=== PATIENT | female | born 1995 | race Caucasian/White ===

== ENCOUNTER 2018-05-19 19:31 | Emergency (ER) | payer OTHER ==
[~2018-05-19] VITALS: Ht 177.8 cm; Wt 113.4 kg
[2018-05-19 20:18] VITALS: Ht 177.8 cm; Wt 113.4 kg
[2018-05-19] MEDS ORDERED: CLEOCIN HCL300 MG PO (21:39)
[2018-05-19] MEDS ORDERED: VOLTAREN75 MG PO (21:39)
[2018-05-19 22:05] VITALS: BP 153/91
== END 2018-05-19 22:05 | disposition home or self-care (01) ==
LOC: D.ER 19:31
DX: L03.314 Cellulitis of groin (principal)

== ENCOUNTER 2018-06-25 14:30 | Emergency (ER) | payer OTHER ==
[~2018-06-25] VITALS: Ht 177.8 cm; Wt 113.6 kg
[~2018-06-25 14:30] MED LIST: CLEOCIN HCL300 MG PO; VOLTAREN75 MG PO
[2018-06-25 14:42] VITALS: Ht 177.8 cm; Wt 113.6 kg
[2018-06-25 15:14] LABS: APPEARANCE HAZY (CLEAR); BILIRUBIN NEGATIVE (NEGATIVE); COLOR YELLOW (YELLOW); GLUCOSE NEGATIVE (NEGATIVE); KETONE NEGATIVE (NEGATIVE); NITRITE NEGATIVE (NEGATIVE); PROTEIN TRACE mg/dL (NEGATIVE); SPECIFIC GRAVITY 1.025 (1.005-1.020); UROBILINOGEN NORMAL (NORMAL)
[2018-06-25 15:16] LABS: AMORPHOUS SEDIMENT >1+ /lpf (NONE SEEN); BACTERIA MODERATE /hpf (NONE SEEN); EPITHELIAL CELLS OCC /hpf (0-5); RED CELLS - URINE OCC /hpf (0-5)
[2018-06-25] MEDS ORDERED: PHENAZOPYRIDIN200 MG PO (16:24)
[2018-06-25] MEDS ORDERED: MACROBID100 MG PO (16:24)
[2018-06-25 16:39] VITALS: BP 141/76
== END 2018-06-25 16:40 | disposition home or self-care (01) ==
LOC: D.ER 14:30
PROVIDERS: Family Medicine
DX: N39.0 Urinary tract infection, site not specified (principal)

== ENCOUNTER 2018-09-03 14:00 | Emergency (ER) | payer SELFPAY ==
[~2018-09-03] VITALS: Ht 177.8 cm; Wt 113.6 kg
[~2018-09-03 14:00] MED LIST changes: +MACROBID100 MG PO; +PHENAZOPYRIDIN200 MG PO
[2018-09-03 14:34] VITALS: Ht 177.8 cm; Wt 113.6 kg
[2018-09-03] MEDS ORDERED: NAPROSYN500 MG PO (15:31)
[2018-09-03 15:56] VITALS: BP 112/64
== END 2018-09-03 15:42 | disposition home or self-care (01) ==
LOC: D.ER 14:00
DX: S93.402A Sprain of unspecified ligament of left ankle, initial encounter (principal); W01.0XXA Fall on same level from slipping, tripping and stumbling without subsequent striking against object, initial encounter; M25.562 Pain in left knee; F17.210 Nicotine dependence, cigarettes, uncomplicated

== ENCOUNTER 2018-10-18 15:33 | Emergency (ER) | payer SELFPAY ==
[~2018-10-18] VITALS: Ht 177.8 cm; Wt 113.6 kg
[~2018-10-18 15:33] MED LIST changes: +NAPROSYN500 MG PO
[2018-10-18 15:52] VITALS: Ht 177.8 cm; Wt 113.6 kg
[2018-10-18 17:09] LABS: APPEARANCE SL CLDY (CLEAR); BILIRUBIN NEGATIVE (NEGATIVE); COLOR YELLOW (YELLOW); GLUCOSE NEGATIVE (NEGATIVE); KETONE NEGATIVE (NEGATIVE); NITRITE NEGATIVE (NEGATIVE); PROTEIN TRACE mg/dL (NEGATIVE); UROBILINOGEN NORMAL (NORMAL)
[2018-10-18 17:11] LABS: RED CELLS - URINE 0-5 /hpf (0-5); WHITE CELLS - URINE >50 /hpf (0-5)
[2018-10-18 17:13] LABS: BACTERIA FEW /hpf (NONE SEEN); EPITHELIAL CELLS 0-5 /hpf (0-5); HCG URINE NEGATIVE (NEGATIVE)
[2018-10-18] MEDS ORDERED: MACROBID100 MG PO (17:31)
[2018-10-18] MEDS ORDERED: PHENAZOPYRIDIN100 MG PO (17:31)
[2018-10-18 18:05] VITALS: BP 123/75
== END 2018-10-18 17:57 | disposition home or self-care (01) ==
LOC: D.ER 15:33
PROVIDERS: Family Medicine
DX: R30.9 Painful micturition, unspecified (principal)

== ENCOUNTER 2018-11-14 19:06 | Emergency (ER) | payer BC ==
[~2018-11-14] VITALS: Ht 177.8 cm; Wt 113.6 kg
[~2018-11-14 19:06] MED LIST changes: +PHENAZOPYRIDIN100 MG PO
[2018-11-14 19:10] VITALS: Ht 177.8 cm; Wt 113.6 kg
[2018-11-14] MEDS ORDERED: PREDNISONE20 MG PO (20:22)
[2018-11-14 20:56] VITALS: BP 103/58
== END 2018-11-14 20:56 | disposition home or self-care (01) ==
LOC: D.ER 19:06
DX: L50.9 Urticaria, unspecified (principal)

== ENCOUNTER 2018-11-16 09:24 | Emergency (ER) | payer BC ==
[~2018-11-16] VITALS: Ht 177.8 cm; Wt 113.6 kg
[~2018-11-16 09:24] MED LIST changes: +PREDNISONE20 MG PO
[2018-11-16 09:28] VITALS: Ht 177.8 cm; Wt 113.6 kg
[2018-11-16 12:31] VITALS: BP 132/87
[2018-11-16] MEDS ORDERED: ZYRTEC10 MG PO (12:31)
[2018-11-16] MEDS ORDERED: PEPCID AC20 MG PO (12:31)
== END 2018-11-16 12:38 | disposition home or self-care (01) ==
LOC: D.ER 09:24
DX: T78.40XA Allergy, unspecified, initial encounter (principal); X58.XXXA Exposure to other specified factors, initial encounter

== ENCOUNTER 2019-03-29 13:01 | Emergency (ER) | payer BC ==
[~2019-03-29] VITALS: Ht 177.8 cm; Wt 113.6 kg
[~2019-03-29 13:01] MED LIST changes: +PEPCID AC20 MG PO; +ZYRTEC10 MG PO
[2019-03-29 13:28] VITALS: BP 120/68; Ht 177.8 cm; Wt 113.6 kg
== END 2019-03-29 14:46 | disposition left against medical advice (07) ==
LOC: D.ER 13:01
DX: O26.891 Other specified pregnancy related conditions, first trimester (principal); Z3A.08 8 weeks gestation of pregnancy; R51 Headache

== ENCOUNTER 2019-07-27 00:02 | Outpatient (CLI) | payer OTHER ==
[2019-04-12 13:34] VITALS: BMI 36.9
[2019-07-27 00:48] LABS: BILIRUBIN NEGATIVE (NEGATIVE); GLUCOSE NEGATIVE (NEGATIVE); KETONE NEGATIVE (NEGATIVE); NITRITE NEGATIVE (NEGATIVE); SPECIFIC GRAVITY 1.005 (1.005-1.020); UROBILINOGEN NORMAL (NORMAL)
[2019-07-27 00:51] LABS: UDS - AMPHET NEGATIVE QUAL (NEGATIVE); UDS - BARB NEGATIVE QUAL (NEGATIVE); UDS - BENZO NEGATIVE QUAL (NEGATIVE); UDS - COCAINE NEGATIVE QUAL (NEGATIVE); UDS - OPIATE NEGATIVE QUAL (NEGATIVE); UDS - PCP NEGATIVE QUAL (NEGATIVE); UDS - THC NEGATIVE QUAL (NEGATIVE)
== END 2019-07-27 04:57 | disposition home or self-care (01) ==
LOC: D.LDO 00:02
PROVIDERS: ATTEND Obstetrics & Gynecology
DX: O26.892 Other specified pregnancy related conditions, second trimester (principal); Z3A.22 22 weeks gestation of pregnancy; N89.8 Other specified noninflammatory disorders of vagina

== ENCOUNTER 2019-08-06 10:09 | Outpatient (CLI) | payer OTHER ==
[2019-04-12 13:34] VITALS: BMI 36.9
== END 2019-08-06 12:30 | disposition home or self-care (01) ==
LOC: D.LDO 10:09
PROVIDERS: ATTEND Obstetrics & Gynecology
DX: O26.899 Other specified pregnancy related conditions, unspecified trimester (principal); Z3A.00 Weeks of gestation of pregnancy not specified

== ENCOUNTER 2019-08-12 17:20 | Outpatient (CLI) | payer OTHER ==
[2019-04-12 13:34] VITALS: BMI 36.9
== END 2019-08-12 18:00 | disposition home or self-care (01) ==
LOC: D.LDO 17:20
PROVIDERS: ATTEND Obstetrics & Gynecology
DX: O26.899 Other specified pregnancy related conditions, unspecified trimester (principal); Z3A.00 Weeks of gestation of pregnancy not specified

== ENCOUNTER → 2019-08-13 17:30 | Outpatient (CLI) | payer OTHER ==
[2019-04-12 13:34] VITALS: BMI 36.9
== END | disposition home or self-care (01) ==
LOC: D.LDO 17:30
PROVIDERS: ATTEND Obstetrics & Gynecology
DX: O26.899 Other specified pregnancy related conditions, unspecified trimester (principal); Z3A.00 Weeks of gestation of pregnancy not specified

== ENCOUNTER 2019-08-17 03:19 | Inpatient (IN) | payer OTHER ==
[~2019-08-17] VITALS: Ht 177.8 cm; Wt 107.0 kg
[2019-08-17] VITALS (13 sets, daily range): BP systolic 122–157; BP diastolic 58–74; Ht 177.8 cm; Wt 107.0 kg
[2019-08-17 05:02] LABS: HEMATOCRIT 37.9 % (36.0-48.0); HEMOGLOBIN 12.5 g/dL (12-16); MCH 29.6 pg (26.0-34.0); MCV 89.6 fL (80.0-100.0); MEAN PLATELET VOLUME 10.5 fL (7.4-10.4); RBC 4.23 10x6/uL (4.00-5.40); RDW 13.8 % (11.5-14.5); WBC 24.6 10x3/uL (4.8-10.8)
[2019-08-17 05:31] LABS: BILIRUBIN NEGATIVE (NEGATIVE); GLUCOSE NEGATIVE (NEGATIVE); KETONE NEGATIVE (NEGATIVE); NITRITE NEGATIVE (NEGATIVE); SPECIFIC GRAVITY 1.005 (1.005-1.020); UROBILINOGEN NORMAL (NORMAL)
[2019-08-17 05:41] LABS: UDS - AMPHET NEGATIVE QUAL (NEGATIVE); UDS - BARB NEGATIVE QUAL (NEGATIVE); UDS - BENZO NEGATIVE QUAL (NEGATIVE); UDS - COCAINE NEGATIVE QUAL (NEGATIVE); UDS - OPIATE NEGATIVE QUAL (NEGATIVE); UDS - PCP NEGATIVE QUAL (NEGATIVE); UDS - THC NEGATIVE QUAL (NEGATIVE)
--- NOTE | 2019-08-17 06:24 | NUR ---
LIVE FEMALE @ 0613 PLACENTA @ 0613
--- NOTE | 2019-08-17 07:43 | NUR ---
REC'D BACK TO ROOM FROM PACU, AA&O X3. VSS. FUNDUS FIRM, MIDLINE AND U1 WITH MODERATE AMT RUBRA LOCHIA NOTED, 3 HALF DOLLAR CLOTS EXPRESSED WITH MASSAGE. PERICARE DONE, PT ROLLED AND TOWELS AND CHUX CHANGED. SHIFT ASSESSMENT COMPLETED PER FLOWSHEET AT THIS TIME. HYPOACTIVE BOWELS SOUNDS PRESENT IN ALL QUADRANTS. BULKY DRSG TO LOWER TRANSVERSE ABD INCISION, CLEAN DRY AND INTACT, NO DRAINAGE NOTED. SCD'S TO BLE. POC DISCUSSED WITH PT, VERBALIZES UNDERSTANDING AND DENIES QUESTIONS. DENIES PAIN AT THIS TIME. UNABLE TO MOVE/FEEL BLE. PT'S MOTHER IN ROOM AT THIS TIME, SUPPORTIVE OF PT. PT REPORTS THAT NICU TEAM DISCUSSED ANGLE CAM AND GAVE HER INFO TO SET UP. ICE CHIPS PROVIDED PER PT REQUEST.
--- NOTE | 2019-08-17 08:06 | NUR ---
RN REMAINS IN ROOM. VSS. FUNDUS FIRM, MIDLINE AND U1 WITH SMALL RUBRA LOCHIA, NO CLOTS NOTED. 200 MLS EMPTIED FROM FAGAN, CLEAR LIGHT YELLOW URINE DRAINING. CONTINUES TO DENY PAIN AND NEEDS. INSTRUCTED ON INCENTIVE SPIROMETER USE WITH RETURN DEMONSTRATION. COUGH AND DEEP BREATHING DONE WITH GOOD EFFORT.
--- NOTE | 2019-08-17 08:32 | NUR ---
VSS. FUNDUS REMAINS FIRM, MIDLINE AND U1 WITH SMALL RUBRA LOCHIA, NO CLOTS NOTED. COVID-19 SWAB OBTAINED PER POLICY AND SENT TO LAB. ICE WATER, JELLO, AND CHICKEN BROTH PROVIDED PER PT REQUEST. INCENTIVE SPIROMETER DONE X10, COUGH AND DEEP BREATHING DONE WITH GOOD EFFORT. PT ABLE TO WIGGLE TOES TO BLE. DENIES PAIN AND ADDITIONAL NEEDS. BED IN LOW POSITION WITH SRUP X2. CALL LIGHT AND PHONE WITHIN REACH. WILL CONTINUE TO MONITOR. SIGNIFICANT OTHER RESTING ON COUCH AT BEDSIDE. PT DISCUSSED DESIRING TO BF, DISCUSSED PROVIDING BREAST PUMP. PT STATES THAT SHE WILL THINK ABOUT IT AND NOTIFY RN IF SHE DECIDED TOO.
--- NOTE | 2019-08-17 09:08 | NUR ---
VSS. FUNDUS REMAINS FIRM MIDLINE AND U1 WITH SMALL AMT RUBRA LOCHIA, 2 DIME SIZED CLOTS NOTED. PERICARE DONE, PADS CHANGED. PT REPOSITIONED RIGHT SIDE. PT ABLE TO MOVE BLE, STATES THAT THEY FEEL HEAVY. SCD'S ON BLE. DRSG TO LOWER TRANSVERSE ABD INCISION REMAINS CLEAN DRY AND INTACT, NO DRAINAGE NOTED. SIGNIFICANT OTHER REMAINS AT BEDSIDE, SUPPORTIVE AND ATTENTIVE TO PT AND PT NEEDS. PT CONVERSING ON PHONE. BED IN LOW POSITION WITH SRUP X2. CALL LIGHT AND PHONE WITHIN REACH.
--- NOTE | 2019-08-17 09:37 | NUR ---
RESTING WITH EYE CLOSE, EASILY AROUSABLE TO VOICE. VSS. FUNDUS REMAINS FIRM, MIDLINE AND U1 WITH SMALL AMT RUBRA LOCHIA, NO CLOTS NOTED. DENIES NEEDS. BED IN LOW POSITION WITH SRUP X2. DENIES PAIN AND NEEDS. SCD'S REMAIN ON BLE. WILL CONTINUE TO MONITOR.
--- NOTE | 2019-08-17 10:12 | NUR ---
VSS. FUNDUS REMAIN FIRM, MIDLINE AND U1 WITH SMALL AMT RUBRA LOCHIA. PERICARE DONE. PADS CHANGED. PT ABLE TO KRISHNAN. BREAST PUMP PROVIDED PER PT REQUEST AND PT INSTRUCTED ON USE WITH RETURN DEMONSTRATION OF USE OF PUMP. ICE WATER PROVIDED. 80 MLS CONCENTRATED URINE EMPTIED FROM FAGAN. ENCOURAGED PO FLUID INTAKE. SCD'S ON BLE. REPORTS THAT SHE USED INCENTIVE SPIROMETER AT 1000. REPOSITIONED FROM R SIDE TO BACK INDEPENDENTLY. REMAINS IN HIGH FOWLERS POSITION PUMPING AT THIS TIME. DENIES PAIN AND NEEDS. WILL CONTINUE TO MONITOR.
--- NOTE | 2019-08-17 10:51 | NUR ---
C/O ABD AND INCISIONAL DISCOMFORT. 1 MG IVP HYDROMORPHONE GIVEN PER ORDER AND PT REQUEST. EBM LABELED AND STORED IN [facility] BREAST MILK [place]. VSS. FUNDUS FIRM MIDLINE, U1 WITH SMALL AMT RUBRA LOCHIA, NO CLOTS NOTED. PERICARE DONE. PAD, TOWELS AND CHUX CHANGED. ICE WATER AND APPLE JUICE PROVIDED. DENIES ADDITIONAL NEEDS. SCD'S ON BLE. BED IN LOW POSITION WITH SRUP X2. CALL LIGHT AND PHONE WITHIN REACH. WILL CONTINUE TO MONITOR.
--- NOTE | 2019-08-17 11:44 | NUR ---
I&O DONE. VSS. FUNDUS REMAINS FIRM, MIDLINE AND U1 WITH SMALL AMT RUBRA LOCHIA, NO CLOTS NOTED. REPORTS THAT PAIN LEVEL REMAINS 4/10, STATES "IT'S NOT ANY BETTER BUT NOT ANY WORSE." ICE WATER PROVIDED AND CONTINUED TO ENCOURAGE PO FLUID INTAKE. WILL REPORT PAIN AND DECREASED OUTPUT TO DR. ZAVALA. DENIES ADDITIONAL NEEDS. BED IN LOW POSITION. REPOSITIONED TO L SIDE INDEPENDENTLY. CURRENTLY USING INCENTIVE SPIROMETER. COUGH AND DEEP BREATHING DONE WITH GOOD EFFORT. SCD'S ON BLE. CALL LIGHT AND PHONE WITHIN REACH. WILL CONTINUE TO MONITOR.
--- NOTE | 2019-08-17 11:53 | NUR ---
REPORT CALLED TO DR. ZAVALA REGARDING DECREASED URINE OUTPUT OVER LAST HOUR AND PT REPORT OF UNCHANGED PAIN FOLLOWING 1 MG DOSING OF HYDROMORPHONE. ORDERS REC'D.
--- NOTE | 2019-08-17 12:40 | NUR ---
C/O OF INCREASED ABD AND INCISIONAL DISCOMFORT FOLLOWING COUGH AND DEEP BREATHING, 09/18. CHANGES IN POC DISCUSSED WITH PT, VERBALIZES UNDERSTANDING. LR BOLUS BEGAN, 1 MG IVP HYDROMORPHONE GIVEN PER ORDER. I&O DONE WITH 60 MLS CONCENTRATED URINE OUTPUT NOTED. VSS. FUNDUS FIRM, MIDLINE AND U1 WITH SCANT RUBRA LOCHIA, NO CLOTS NOTED. REPOSITIONED TO L SIDE, PILLOW PLACED UNDER ABD AND BEHIND BACK. SCD'S REMAIN ON BLE, INCENTIVE SPIROMETER DONE X10. PERICARE DONE, PADS CHANGED. BED IN LOW POSITION WITH SRUP X2. CALL LIGHT AND PHONE WITHIN REACH. WILL CONTINUE TO MONITOR.
--- NOTE | 2019-08-17 13:16 | NUR ---
PAIN REASSESSMENT COMPLETED, RESTING QUIETLY WITH EYES CLOSED, RESP REGULAR AND UNLABORED, NO S/S OF DISTRESS NOTED. BED IN LOW POSITION WITH SRUP X2. CALL LIGHT AND PHONE WITHIN REACH. WILL CONTINUE TO MONITOR. PT NOT DISTURBED TO ALLOW FOR REST.
--- NOTE | 2019-08-17 13:48 | NUR ---
VSS. FUNDUS FIRM, MIDLINE AND U2 WITH SMALL AMT RUBRA LOCHIA, NO CLOTS NOTED. REPOSITIONED INDEPENDENTLY. ICE WATER PROVIDED, ENCOURAGED PO FLUID INTAKE, DENIES NEEDS. CONVERSING WITH SIGNIFICANT OTHER. STATES THAT SHE IS TIRED AND DESIRES TO BE WITH HER , REPORTS THAT SHE HAS BEEN WATCHING ON DESIREE CAM. BED IN LOW POSITION WITH SRUP X2. CALL LIGHT AND PHONE WITHIN REACH. WILL CONTINUE TO MONITOR.
--- NOTE | 2019-08-17 14:47 | NUR ---
REPOSITIONED BACK TO BACK WITH MIN ASSIST. C/O ABD AND INCISIONAL DISCOMFORT AND MEDICATED PER ORDER AND PT REQUEST. URINE OUTPUT INCREASED THIS HOUR. PIV SL, FAGAN REMAINS IN PLACE. PT REPORTS THAT SHE HAS PASSED FLATUS, DIET ADVANCED PER ORDER. B/P CHECK DONE AND ELEVATED, WILL RECHECK FOLLOWING PAIN MEDS. INCENTIVE SPIROMETER USED AND COUGH AND DEEP BREATHING DONE. SCD'S ON BLE WILL CONTINUE TO MONTIOR.
--- NOTE | 2019-08-17 15:34 | NUR ---
PAIN REASSESSMENT COMPLETED. RESTING QUIETLY IN SEMI-FOWLERS POSITION WITH EYES CLOSED. RESP REGULAR AND UNLABORED, NO S/S OF DISTRESS NOTED. PT NOT DISTURBED TO ALLOW FOR REST. WILL CONTINUE TO MONITOR. BED IN LOW POSITION WITH SRUP X2. CALL LIGHT AND PHONE WITHIN REACH.
--- NOTE | 2019-08-17 16:32 | NUR ---
SITTING IN HIGH FOWLERS POSITION EATING EVENING MEAL TRAY. DENIES NEEDS AT THIS. 525 MLS CLEAR LIGHT YELLOW URINE NOTED IN FAGAN. DENIES PAIN AND NEEDS AT THIS TIME. INSTRUCTED PT TO NOTIFY WHEN MEAL COMPLETED FOR FAGAN TO BE D/C'D. VERBALIZES UNDERSTANDING. SIGNIFICANT OTHER AT BEDSIDE, SUPPORTIVE TO PT. BED IN LOW POSITION WITH SRUP X2. CALL LIGHT AND PHONE WITHIN REACH. WILL CONTINUE TO MONITOR.
--- NOTE | 2019-08-17 17:43 | NUR ---
VSS. FUNDUS REMAINS FIRM, MIDLINE AND U1 WITH SCANT RUBRA LOCHIA NOTED. NO CLOTS NOTED. PERICARE DONE. FAGAN D/C'D, INTACT. FAN PROVIDED PER PT REQUEST. CURRENTLY WATCHING INFANT ON DESIREE CAM, STATES THAT SHE JUST SPOKE TO NICU NURSE AND WAS UPDATED ON INFANT STATUS. REQUESTS TO PUMP. REPOSITIONED INDEPENDENTLY FROM RIGHT SIDE TO HIGH FOWLERS POSITION. C/O ABD AND INCISIONAL DISCOMFORT FOLLOWING REPOSITIONING. PERCOCET GIVEN PER ORDER AND PT REQUEST. DENIES ADDITIONAL NEEDS. BREAST PUMP SET UP. PT INSTRUCTED TO NOTIFY RN FOR ASSISTANCE OOB, VERBALIZES UNDERSTANDING. BED INLOW POSITION WITH SRUP X2. CALL LIGHT AND PHONE PLACED WITHIN REACH.
--- NOTE | 2019-08-17 18:27 | NUR ---
UP TO BR WITH STANDBY ASSIST. VOIDED 200 MLS IN HAT. PERICARE DONE PER PT. PADS AND PANTIES PROVIDED AND PUT ON. PAIN REASSESSMENT COMPLETED, NOW 06/19. EBM STORED PER POLICY. AMBULATORY ON UNIT TO NURSES STATION, STEADY GAIT NOTED. BACK TO ROOM AND TO BED. REFUSES SCD'S CURRENTLY. BED IN LOW POSITION WITH SRUP X2. CALL LIGHT AND PHONE WITHIN REACH. LINEN CHANGE COMPLETED.
--- NOTE | 2019-08-17 18:59 | NUR ---
THIS RN TO BEDSIDE W/Nicholas MONIQUE RN FOR BEDSIDE SHIFT REPORT. VITAL SIGNS OBTAINED AND SHIFT ASSESSMENT COMPLETED AT THIS TIME. SEE FLOWSHEET. FRESH ICE CAP FOR ABD PROVIDED. SCE WRAPS PLACED BACK ON PT. CONNECTED TO PUMP. PUMP IS ON AND FUNCTIONING. PT DENIES NEEDS AND DECLINES OFFERS TO BRING HER ANYTHING TO EAT OR DRINK AT THIS TIME. BED LOW, SIDE RAILS UP X 2. CALL LIGHT AND PHONE AT PT'S SIDE.
--- NOTE | 2019-08-17 19:36 | NUR ---
MILDRED LAUREANO CALLS UNIT TO REPORT COVID TEST WAS NEGATIVE.
--- NOTE | 2019-08-17 21:15 | NUR ---
PT RINGS CALL LIGHT REQUESTING TO GET UP TO BR. THIS RN TO BEDSIDE. PT OOB W/OUT ASSISTANCE. AMBULATORY TO BR. SCANT LOCHIA NOTED ON PERIPADS. PT ABLE TO VOID APPROX 250ML IN NUNS CAP. PT RETURNS TO BED. PERCOCET 10MG PO AND TORADOL 30MG SIVP GIVEN. SCD WRAPS RECONNECTED TO PUMP. PUMP REMAINS ON AND FUNCTIONING. BED IN LOW POSITION, SIDE RAILS UP X 2. CALL LIGHT AND PHONE AT PT'S SIDE. PT OFFERED SOMETHING TO EAT OR DRINK. PT REQUEST A SANDWICH TRAY AND WATER. BOTH SERVED. PT DENIES FURTHER NEEDS.
--- NOTE | 2019-08-17 23:25 | NUR ---
THIS RN TO BEDSIDE FOR ROUNDING. PT STILL W/C/O PAIN AT INCISION SITE. 2MG DILAUDID SIVP GIVEN. PT DENIES FURTHER NEEDS AT THIS TIME.
--- NOTE | 2019-08-18 01:00 | NUR ---
ROUNDS MADE. PT LYING IN BED W/EYES CLOSED. OPENS THEM SPONTANEOUSLY W/THIS RN'S ENTRY TO THE ROOM. PT REPORTS PAIN "IS BETTER". DENIES NEEDS AT THIS TIME.
--- NOTE | 2019-08-18 02:25 | NUR ---
THIS RN TO BEDSIDE TO OFFER PT PAIN MEDICATION. PT REPORTS INCISIONAL PAIN 09/18. PERCOCET 10 1 TAB GIVEN. PT OOB AT THIS TIME. UP TO THE BR. SCANT LOCHIA NOTED TO CURRENT PERIPADS. PT ABLE TO VOID. COLLECTION AMOUNT TO BE PERFORMED BY RN ASSUMING CARE (Nicholas VANEGAS RN). FRESH ICE CAP AND FRESH ICE WATER PROVIDED. PT DENIES FURTHER NEEDS. PT INFORMED THAT Nicholas VANEGAS WILL ASSUME CARE AT THIS TIME.
--- NOTE | 2019-08-18 02:30 | NUR ---
RECEIVED REPORT FROM KEYONA SCHNEIDER RN
[2019-08-18 02:45] VITALS: BP 129/62
--- NOTE | 2019-08-18 02:45 | NUR ---
PT PLATING OPERATOR LIGHT, SCD'S RECONNECTED AND WORKING PROPERLY, VS OBTAINED, POC DISCUSSED WITH PT REGARDING POSSIBLE DISCHARGE TODAY, PT VERBALIZES UNDERSTANDING, REPORTS BABY IS DOING GOOD, PT DENIES FURTHER NEEDS AT THIS TIME, FOB ASLEEP ON COUCH
--- NOTE | 2019-08-18 03:04 | NUR ---
PT AWAKE, SALINE LOCK FLUSHED, ADM TORADOL DILUTED IN 5MLS OF NS, SIVP PER MD ORDERS, SALINE LOCK FLUSHED, SEE EMAR, PT DENIES NEEDS
--- NOTE | 2019-08-18 05:00 | NUR ---
PT RESTING WITH EYES CLOSED, RESP QUIET, NO DISTRESS NOTED, LEFT UNDISTURBED AT THIS TIME, FOB ASLEEP ON COUCH
--- NOTE | 2019-08-18 06:22 | NUR ---
PT RESTING WITH EYES CLOSED, RESP QUIET, NO DISTRESS NOTED, LEFT UNDISTURBED AT THIS TIME, SCD'S ON AND WORKING PROPERLY, FOB ASLEEP ON COUCH
[2019-08-18 07:01] LABS: HEMATOCRIT 31.7 % (36.0-48.0); HEMOGLOBIN 10.1 g/dL (12-16); MCH 28.9 pg (26.0-34.0); MCHC 31.9 g/dL (31.0-37.0); MCV 90.8 fL (80.0-100.0); MEAN PLATELET VOLUME 9.8 fL (7.4-10.4); RBC 3.49 10x6/uL (4.00-5.40); RDW 14.2 % (11.5-14.5)
[2019-08-18 07:12] LABS: WBC 17.4 10x3/uL (4.8-10.8)
[2019-08-18 08:21] VITALS: BP 138/65
--- NOTE | 2019-08-18 08:21 | NUR ---
AM ASSESSMENT COMPLETED CHARTED TO FLOWSHEET. PT RATES PAIN AT 6/10 BUT STATES SHE WANTS TO EAT BREAKFAST BEFORE TAKING PAIN MED AND WILL CALL NURSE WHEN READY. FUNDUS FIRM AT U/U MIDLINE WITH LIGHT BLEEDING NOTED. SIG OTHER PRESENT AT BEDSIDE. REGULAR DIET TRAY BROUGHT TO ROOM, CALL LIGHT IN REACH.
--- NOTE | 2019-08-18 09:06 | NUR ---
CALLED TO ROOM, PT STATES THAt SHE NEEDS TO VOID. VERIFIED THAT SHE HAD BEEN UP TO THE BATHROOM X 2, REASSURED HER THAT SHE IS ABLE TO GET UP WITHOUT NURSE IN ROOM. SHE IS ABLE TO GET SELF UP AND WALK TO BATHROOM, VOIDS WITHOUT COMPLAINT. SHE IS ABLE TO CHANGE HER PADS/MESH BRIEFS WITHOUT NEED OF ASSISTANCE. REQUEST MADE FOR PAIN MED DUE TO CRAMPING THAT SHE RATES AT 6/10.
--- NOTE | 2019-08-18 09:08 | NUR ---
PAIN MED GIVEN SCANNED TO EMAR. FUNDUS FIRM AT U/1 WITH LIGHT BLEEDING NOTED. LARGE WHITE ABD DRESSING IN PLACE OVER BIKINI INCISION. PT DENIES WANTING TO SHOWER AT THIS TIME BUT WILL CALL WHEN SHE IS READY. SIDE RAILS PU X 2 WITH CALL LIGHT IN REACH.
--- NOTE | 2019-08-18 09:33 | NUR ---
ROUNDS MADE BY DR ZAVALA
--- NOTE | 2019-08-18 09:45 | NUR ---
VERBAL ORDERS RECEIVED FROM DR ZAVALA THAT PT MAY DISCHARGE TODAY AT 1500. WRITTEN SCRIPTS PLACED IN CHARTED BY DR ZAVALA.
--- NOTE | 2019-08-18 10:18 | NUR ---
BREAST MILK THAT PT HAS PUMPED IS STICKERED AND TAKEN TO NBN TO PLACE IN [place].
--- NOTE | 2019-08-18 12:18 | NUR ---
LARGE CUP OF ICE WITH LEMON MANCHE[place] SODA TAKEN TO ROOM REQUESTED. SALINE LOCK REMOVED FROM RIGHT WRIST, CATH NOTED TO BE INTACT. RATES PAIN AT 3/10 AT THIS TIME AND DENIES ANY OTHER NEEDS.
--- NOTE | 2019-08-18 13:35 | NUR ---
PAIN MED GIVEN SCANNE TO EMAR FOR PAIN THAT SHE RATES AT 6/10. PT VERIFIES THAT SHE WILL BE ABLE TO GO HOME TODAY AND IS REASSURED THAT YES BUT NOT UNTIL 1500. NO OTHER NEEDS AT THIS TIME. CALL LIGHT IN REACH.
[2019-08-18] MEDS ORDERED: IBUPROFEN800 MG PO (14:28)
[2019-08-18] MEDS ORDERED: PERCOCET 7.5/321 TAB PO (14:30)
--- NOTE | 2019-08-18 15:15 | NUR ---
verbal and written discharge instructions gone over with pt. she is also provided with written scripts for Percocet 7.5mg and Motrin 800mg and states her understanding on how to take. s/s of infection also gone over and that if she experience any of these to go to the ER. Taken out by wheelchair home with sig other by private car.
[2019-08-19 07:13] LABS: RAPID PLASMA REAGIN Non Reactive (Non Reactive)
--- NOTE | 2019-08-19 16:45 | OP ---
PATIENT NAME: LUZ CROOKS MEDICAL RECORD: [id number] :93 LOCATION:[facility]1278 ADMISSION DATE:08/17/19 SURGEON: JARRETT ZAVALA MD DATE OF OPERATION: 08/17/2019 PREOPERATIVE DIAGNOSES: 1. labor at 25 weeks' gestation. 2. Footling breech. POSTOPERATIVE DIAGNOSES: 1. labor at 25 weeks' gestation. 2. Footling breech. PROCEDURE: Low transverse section with a T'd incision. SURGEON: Jarrett Zavala MD PROFESSOR OF OCEANOGRAPHY: Gamal Jaramillo. ANESTHESIA: Spinal. FINDINGS: Viable female in a footling breech presentation, Apgars are 7 and 8, weight is 935 grams. Upon presentation, hourglassing membranes into the vagina with feet through the cervix, unremarkable uterus, tubes and ovaries bilaterally. SPECIMENS REMOVED: Placenta. SPECIMEN DISPOSITION: Pathology. ESTIMATED BLOOD LOSS: 800 cc. FLUIDS: 2300 cc of lactated Ringer's. URINE OUTPUT: 190 cc of clear urine. COMPLICATIONS: None. DRAINS: Marcum to gravity. INDICATIONS: The patient is a 24-year-old female who presented to the labor unit this morning with complaints of abdominal pain beginning yesterday. The patient stated contractions of increasing frequency without intensity increasing yesterday afternoon and evening and this morning began to have vaginal pain and pressure. The patient presents to labor and delivery, was noted to have membranes at the labia and on ultrasound with the feet in the upper vagina. The team at [facility] was notified and coordinated delivery at the time of their arrival. DESCRIPTION OF PROCEDURE: After informed consent was assured, the patient was taken to the operating room where anesthetic was obtained. The patient was prepped and draped. Upon arrival of the unit, the section was begun. A low transverse incision was made on the abdomen, carried down to the underlying layer of the fascia, which was opened in the midline and extended laterally. Now, his rectus bellies dissected free superiorly and inferiorly and OPERATIVE REPORT [id number] LUZ CROOKS then in the midline. The peritoneum was entered sharply and the incision of the peritoneum extended superiorly and inferiorly with good visualization of the bladder. The placenta was noted to be anterior on ultrasound and low transverse hysterotomy was performed. Attempts were made to deliver the through a low transverse hysterotomy, but due to placement of the anatomy, the incision was T'd cutting into the inferior margin of the placenta. The infant was delivered onto the abdomen quickly after this has been performed and the cord was doubly clamped and cut with the infant noted to be crying on the abdomen. The infant was passed to the attendant to take the infant to the nursery with the awaiting team. Placenta was delivered via Crede maneuver. The uterus was now exteriorized, cleared of all clots and debris. The vertical aspect of the incision was closed with a running locked stitch of Vicryl. A separate stitch of Vicryl was used to close the transverse hysterotomy in a running locked fashion. A 3-0 chromic was now used to close the serosa of the uterus over the vertical incision. Some bleeding was noted from the transverse hysterotomy left of midline and a [id number] stitch was applied here. The sponge count was correct times 1 after placement of Thony. Rectus bellies were reapproximated in the midline and then the fascia was closed in running fashion with looped PDS. Subcutaneous tissue was irrigated. Bleeding vessels cauterized, and the skin was reapproximated with juancarlos. Sterile dressing was applied. Sponge, lap, and needle counts were correct times 3 at the close of this procedure. Infant was transferred to [facility] for care and patient to the recovery room. TRANSINT:[id number] Voice Confirmation ID: [id number] DOCUMENT ID: [id number] JARRETT ZAVALA MD at 1645 CC: [id number] DICTATION DATE: 08/17/19716 RESEARCH LIBRARIAN: 08/17/19 1121 DIS IN 08/18/19 [facility] [address] [id number]
== END 2019-08-18 15:30 | disposition home or self-care (01) | DRG 788 ==
LOC: D.LDO 03:19 → D.LD 04:55
PROVIDERS: ADMIT Obstetrics & Gynecology; ATTEND Obstetrics & Gynecology
PROC: 10D00Z1 Extraction of Products of Conception, Low, Open Approach (ICD-10-PCS; principal; 2019-08-17 05:29)
DX: O60.12X0 Preterm labor second trimester with preterm delivery second trimester, not applicable or unspecified (principal); Z3A.25 25 weeks gestation of pregnancy; Z37.0 Single live birth; O32.1XX0 Maternal care for breech presentation, not applicable or unspecified

== ENCOUNTER 2020-05-22 05:09 | Outpatient (CLI) | payer OTHER ==
[2019-08-17 06:13] VITALS: BMI 33.9
[~2020-05-22 05:09] MED LIST changes: +IBUPROFEN800 MG PO; +PERCOCET 7.5/321 TAB PO
[2020-05-22 05:33] LABS: BILIRUBIN NEGATIVE (NEGATIVE); KETONE NEGATIVE (NEGATIVE); NITRITE NEGATIVE (NEGATIVE); UROBILINOGEN NORMAL mg/dL (< 2); WHITE CELLS - URINE 0-5 HPF (0-4)
[2020-05-22 05:35] LABS: UDS - AMPHET NEGATIVE QUAL (NEGATIVE); UDS - BARB NEGATIVE QUAL (NEGATIVE); UDS - BENZO NEGATIVE QUAL (NEGATIVE); UDS - COCAINE NEGATIVE QUAL (NEGATIVE); UDS - OPIATE NEGATIVE QUAL (NEGATIVE); UDS - PCP NEGATIVE QUAL (NEGATIVE); UDS - THC NEGATIVE QUAL (NEGATIVE)
== END 2020-05-22 11:30 | disposition home or self-care (01) ==
LOC: D.LDO 05:09
PROVIDERS: ATTEND Student in an Organized Health Care Education/Training Program
DX: O47.9 False labor, unspecified (principal)

== ENCOUNTER 2020-06-19 22:43 | Outpatient (CLI) | payer OTHER ==
[2020-06-19 23:52] LABS: BILIRUBIN NEGATIVE (NEGATIVE); KETONE NEGATIVE (NEGATIVE); NITRITE NEGATIVE (NEGATIVE); UROBILINOGEN NORMAL mg/dL (< 2)
[2020-06-20 00:13] LABS: UDS - AMPHET NEGATIVE QUAL (NEGATIVE); UDS - BARB NEGATIVE QUAL (NEGATIVE); UDS - BENZO NEGATIVE QUAL (NEGATIVE); UDS - COCAINE NEGATIVE QUAL (NEGATIVE); UDS - OPIATE NEGATIVE QUAL (NEGATIVE); UDS - PCP NEGATIVE QUAL (NEGATIVE); UDS - THC NEGATIVE QUAL (NEGATIVE)
[2020-06-20 01:29] VITALS: BMI 33.9
== END 2020-06-20 01:30 | disposition home or self-care (01) ==
LOC: D.LDO 22:43 → D.LD 22:46 → D.LDO 06-20 01:30
PROVIDERS: ATTEND Obstetrics & Gynecology
DX: O35.9XX0 Maternal care for (suspected) fetal abnormality and damage, unspecified, not applicable or unspecified (principal)

== ENCOUNTER 2020-07-12 13:09 | Inpatient (IN) | payer OTHER ==
[~2020-07-12] VITALS: Ht 177.8 cm; Wt 122.5 kg
--- NOTE | ~2020-07-12 | OP ---
PATIENT NAME: LUZ KWOK MEDICAL RECORD: [id number] :93 LOCATION:[facility] ADMISSION DATE:08/02/20 SURGEON: KENROY ESPINOZA DO DATE OF OPERATION: 08/02/2020 PREOPERATIVE DIAGNOSES: A 36 weeks prior , prior classical incision, gestational hypertension, short interval pregnancies, desiring sterility. POSTOPERATIVE DIAGNOSES: A 36 weeks prior , prior classical incision, gestational hypertension, short interval pregnancies, desiring sterility. PRIMARY SURGEON: Kenroy Espinoza DO ANESTHESIA: Spinal. PROCEDURE: Repeat low transverse via Pfannenstiel incision, bilateral tubal ligation via Renee method. FINDINGS: A vigorous male born at 12:23 p.m. Apgars 8 and 9, vertex position, clear fluid, weight 5 pounds 12 ounces, grossly normal uterus, bilateral tubes and bilateral ovaries. Small calcification noted in abdomen. Thony placed for hemostasis. SPECIMENS: Placenta, cord pH, cord blood and abdominal calcification. EBL: 900 cc. IV FLUIDS: 2200 cc. URINE OUTPUT: 150 cc clear yellow urine in the Marcum. INFECTION PROPHYLAXIS: 2 grams Ancef, ChloraPrep. COMPLICATIONS: None. INDICATION: Risks and benefits of procedure were reviewed with the patient including bleeding, pain, infection, damage to surrounding structures including bowel, bladder, neurovascular structures and ureters as well as risk of VTE and reoperation. The patient expressed understanding and agreed. Consents were signed. The patient also desiring no further childbearing understands this is permanent and tubal consents have been signed in the office prior. DESCRIPTION OF PROCEDURE: The patient was taken to the operating room where spinal anesthesia was administered and found to be adequate. She was prepped and draped in normal sterile fashion in dorsal lithotomy position with leftward tilt. Pfannenstiel skin incision was made, carried down to the underlying layer of fascia with the Bovie. The fascia was incised in the midline and the incision extended laterally with Morrissey scissors. The fascia was grasped with Mohan clamps and the rectus muscle dissected off sharply. Rectus muscle was grasped with 2 Allises and in the midline. Rectus muscle dissected using Metzenbaum scissors. Peritoneum identified and noted to be free of adherent bowel and bladder entered bluntly. Peritoneum was further stretched with gentle traction. Bladder blade placed. Transverse incision was made on the uterus with a scalpel and extended with upward and downward traction. Infant's head brought to the incision. Infant delivered without difficulty. OPERATIVE REPORT [id number] LUZ KWOK JIGNA Mouth and nose were suctioned. Cord was clamped and cut. The handed with good cry to awaiting pediatric nurse. Placenta delivered manually. Uterus exteriorized. Dry laparotomy sponge used to assure complete removal of placental membranes. Hysterotomy closed in a running locked fashion with good hemostasis with 0 Vicryl. Middle part of hysterotomy with some bleeding noted, so 2 [id number]-lchdy placed with good hemostasis. Uterus was noted to be firm. Attention turned to the posterior cul-de-sac, irrigated and suctioned to remove blood clots and fluid. At this time, small calcification noted and sent to pathology. Attention then turned to the uterus. Again, bilateral tubes examined and grossly normal along with the ovaries, and tubal ligation performed using Renee method with good hemostasis and plain gut suture. Uterus returned to abdominal cavity. Gutters examined and cleaned with moist laparotomy sponge. A tubal area where a Renee completed also reexamined and noted to be hemostatic. No active bleeding noted. Uterus was firm. Thony was placed over hysterotomy. Muscle closed in a running fashion with 2-0 Monocryl. Fascia closed in a running fashion with 0 Vicryl. Prior to fascial closure, muscle irrigated. No active bleeding noted. Fascia closed in a running fashion. Subcutaneous layer irrigated and bleeding vessels cauterized. Plain gut used to close the space and then skin closed in a subcuticular fashion with 3-0 Monocryl and good hemostasis. Steri-Strips applied. Pressure dressing applied. The patient tolerated the procedure well. All lap, needle and instrument counts were correct times 2. The patient was taken to recovery room in stable condition. TRANSINT:[id number] Voice Confirmation ID: [id number] DOCUMENT ID: [id number] KENROY ESPINOZA DO CC: [id number] DICTATION DATE: 08/03/20 1144 TITLE SEARCH MANAGER: 08/04/20 0546 ADM IN [facility] [address] [place] [address]
[2020-08-02 10:31] VITALS: BP 125/58; Ht 177.8 cm; Wt 122.5 kg
[2020-08-02 11:21] LABS: HEMATOCRIT 35.2 % (36.0-48.0); HEMOGLOBIN 11.8 g/dL (12-16); MCH 28.5 pg (26.0-34.0); MCHC 33.6 g/dL (31.0-37.0); MCV 84.8 fL (80.0-100.0); MEAN PLATELET VOLUME 8.8 fL (7.4-10.4); RBC 4.15 10x6/uL (4.00-5.40); RDW 14.7 % (11.5-14.5); WBC 20.4 10x3/uL (4.8-10.8)
--- NOTE | 2020-08-02 14:45 | NUR ---
REQUEST BY Sharita ISRAEL RN TO CHECK FUNDUS, FUNDUS FIRM, U/2, SMALL RUBRA LOCHIA, NO CLOTS EXPELLED. PT RATING PAIN TO INCISIONAL AREA AT REST, WITH PAIN TO INCISIONAL AREA WHEN FUNDAL CHECK IS 5/10.
--- NOTE | 2020-08-02 15:28 | NUR ---
Pt presented on Labor and delivery unit this morning and stated that she was here for a repeat with bilateral tubal ligation. RN acknowledged and escorted pt to room 1273. Orders were obtained by and pt was placed on monitor. Consents obtained, Vitals were obtained and orders for preoperative care were completed. Bilateral PIV's were placed in pts right and left forearms. Fluid bolus was administered, pre surgical medications administered and skin prepped at surgical sight. Pt then escorted to OR suite for procedure to be completed by Dr. Espinoza as ordered. Delivery of Male infant was noted at 1223. Infant was then passed to nursery RN for futher assessment to be completed. Bilateral tubal ligation was then performed per pt request. Pt departed OR suite and entered PACU/ Post part phase at 1332. Pt was broughtr back to room 1273 where Sharita Valdez RN stayed with pt bedside during recovery phase. Vitals were obtained and charted within centricity.
--- NOTE | 2020-08-02 16:20 | NUR ---
Off going report provided to Susana Aguilera RN at this time. Fundal assessment completed at this time along with pericare. No needs or concerns voiced by pt at this time.
--- NOTE | 2020-08-02 16:20 | NUR ---
ASSESSMENT COMPLETED, SEE FLOWSHEET. PT IS PROVIDED WITH ABD PILLOW FOR COUGHING AND DEEP BREATHING EXERCISES USING THE INCENTIVE SPRIROMETER. PT PROVIDED WITH I/S, DEMONSTRATES WELL 5-6 TIMES AND COUGHING EXERCISES DONE. PT PROVIDED WITH LARGE ICE WATER AND [place] SERVED. PT HAS SCDS ON. LARGE FOAM DRESSING REMAINS C/D/I, WITH NEW ICE PACK PLACED OVER GOWN TO INCISION. PT DENIES ALL OTHER NEEDS. SR UPX 2, CL/PHONE WITHIN REACH.
[2020-08-02 17:00] VITALS: BP 112/68
--- NOTE | 2020-08-02 17:06 | NUR ---
NEW BAG OF PITOCIN 20 UNITS 1000 ML UP AND INFUSING AT 125 ML/HR. FUNDUS FIRM, U/2, SMALL RUBRA LOCHIA, NO CLOTS. PT RATING PAIN 2/10, TO INCISIONAL AREA, AND ABDOMEN SOFT, BUT TENDER TO TOUCH WHEN PALPATED. DSG CONTINUES TO C/D/I. SR UP X2, CALL LIGHT AND PHONE WITHIN REACH. PT DENIES ALL OTHER NEEDS. SIG OTHER AT BEDSIDE.
--- NOTE | 2020-08-02 17:30 | NUR ---
TO ROOM, NEW ICE PACK APPLIED TO INCISION OVER GOWN, PERITOWEL AND CHUX CHANGED. FAGAN CATH EMPTIED WITH 100 MLS DARK URINE OUT. MEDICATION ADM RECORD REVIEWED WITH PT. PT DENIES ALL NEEDS AT THIS TIME. PT DENIES N/V, SOB, DIZZINESS OR CHEST PAIN. SRUP X2, CL/PHONE WITHIN REACH.
--- NOTE | 2020-08-02 19:05 | NUR ---
SHIFT REPORT RECEIVED FROM PITA YUSUF TO ASSUME PT CARE.
--- NOTE | 2020-08-02 19:35 | NUR ---
PT CALLED OUT ABORIGINAL EDUCATION WORKER COORDINATOR WALKER FOR PAIN MEDICATION. PAIN MEDICATION ADMINISTERED PER PITA NEWMAN AT THIS TIME, SEE EMAR
[2020-08-02 19:59] VITALS: BP 110/56
--- NOTE | 2020-08-02 19:59 | NUR ---
SHIFT ASSESSMENT COMPLETED, SEE FLOWSHEET
--- NOTE | 2020-08-02 20:37 | NUR ---
PATIENT ADMINISTERED TORADOL PER MD ORDERS, SEE EMAR.
--- NOTE | 2020-08-02 22:38 | NUR ---
PATIENT LYING QUIETLY IN BED, PERICARE PERFORMED, BLEEDING SMALL RUBRA, PADS CHANGED. ICE PACK REPLACED ON PTS ABDOMEN. SPRITE PROVIDED PER REQUEST. NOFURTHER NEEDS IDENTIFIED. WILL CONTINUE TO MONITOR.
--- NOTE | 2020-08-03 00:03 | NUR ---
PAIN MEDICATION ADMINISTERED PER PT REQUEST AND MD ORDERS.
--- NOTE | 2020-08-03 05:55 | NUR ---
FAGAN CATHETER REMOVED WITHOUT INCIDENT. IV FLUIDS DISCONTINUED. SCD'S REMOVED PT DENIES ANY NEEDS. WILL CONTINUE TO MONITOR.
[2020-08-03 06:23] LABS: BASOPHILS 0.1 % (0-2); EOSINOPHILS 1.5 % (0-7); HEMATOCRIT 33.6 % (36.0-48.0); HEMOGLOBIN 11.1 g/dL (12-16); LYMPHOCYTES 10.2 % (15-50); MCH 27.8 pg (26.0-34.0); MCV 84.3 fL (80.0-100.0); MEAN PLATELET VOLUME 8.3 fL (7.4-10.4); MONOCYTES 8.4 % (2-11); NEUTROPHILS 79.8 % (40-80); PLATELET COUNT 381 10x3/uL (130-400); RBC 3.99 10x6/uL (4.00-5.40); RDW 14.8 % (11.5-14.5); WBC 24.2 10x3/uL (4.8-10.8)
[2020-08-03 07:16] LABS: RAPID PLASMA REAGIN Non Reactive (Non Reactive)
[2020-08-03 08:17] VITALS: BP 120/64
--- NOTE | 2020-08-03 08:17 | NUR ---
UP TO BR, WITH STANDBY ASSIST. VOIDED 200 MLS YELLOW URINE IN HAT. STEADY GAIT NOTED. ABD BINDER PROVIDED AND PLACED, INSTRUCTED ON USE, VERBALIZES UNDERSTANDING AND DENIES QUESTIONS. SHIFT ASSESSMENT COMPLETED PER FLOWSHEET. VSS. FF, MIDLINE AND U2 WITH SMALL AMT RUBRA LOCHIA, NO CLOTS NOTED. REPORTS LARA SHE IS PASSING FLATUS. LOWER TRANSVERSE ABD INCISION COVERED WITH DRSG. DRSG CLEAN DRY AND INTACT. PANTIES AND PADS PROVIDED. POC DISCUSSED WITH PT, VERBALIZES UNDERSTANDING AND DENIES QUESTIONS. PT REPORTS THAT SHE JUST GOT AN UPDATE ON AND HE IS DOING WELL. C/O ABD AND INCISIONAL DISCOMFORT, 10/19, TORADOL GIVEN PER ORDER. DR. GARCIA PROVIDED. DENIES ADDITIONAL NEEDS. REFUSES SCD'S, EDUCATION PROVIDED. SIG OTHER RESTING ON COUCH AT BEDSIDE. BED IN LOW POSITION WITH SRUP X2. CALL LIGHT AND PHONE WITHIN REACH.
--- NOTE | 2020-08-03 08:52 | NUR ---
NENA FROM MED RECORDS TO BEDSIDE FOR INFO COMPLETION. PAIN 2/10, SITTING UP IN BED CONVERSING WITH SIG OTHER. DENIES NEEDS. BED IN LOW POSITION WITH SRUP X2. CALL LIGHT AND PHONE WITHIN REACH.
--- NOTE | 2020-08-03 09:41 | NUR ---
SPOKE WITH DR. PRECIADO REGARDING PO PAIN MED ORDERS AND PT BEING NORMALIZED AT 0600 AND VOIDED 200 MLS WITH THIS RN. ORDERS REC'D.
--- NOTE | 2020-08-03 10:21 | NUR ---
VIEWING VIA LIVE CAMERA FEED FROM NICU. DENIES NEEDS. BED IN LOW POSITION WITH SRUP X3. CALL LIGHT AND PHONE WITHIN REACH. SIG OTHER WATCHING TV AT THIS TIME.
--- NOTE | 2020-08-03 11:17 | NUR ---
C/O ABD AND INCISIONAL DISCOMFORT 09/18. MEDICATED PER EMAR. PT REPORTS THAT SHE VOIDED IN HAT, 450 MLS YELLOW URINE NOTED IN HAT. ABD BINDER ON. DENIES ADDITIONAL NEEDS. BED IN LOW POSITION. TAKING CALL FROM [facility] FOR UPDATE ON .
--- NOTE | 2020-08-03 11:59 | NUR ---
PAIN 05/19. DENIES NEEDS. REFUSES SCD'S AT THIS TIME. BED IN LOW POSITION WITH SRUP X2. CALL LIGHT AND PHONE WITHIN REACH.
--- NOTE | 2020-08-03 13:31 | NUR ---
REFUSES GAS-X, STATES THAT SHE IS PASSING FLATUS. DENIES NEEDS AT THIS TIME. CONVERSING WITH SIG OTHER AND VIEWING LIVE CAMERA FEED OF INFANT. BED IN LOW POSITION WITH SRUP X2. CALL LIGHT AND PHONE WITHIN REACH. SIG OTHER AT BEDSIDE, SUPPORTIVE AND ATTENTIVE TO PT AND NEEDS. L FA AND R FA SL PIV'S D/C'D WITH TIP INTACT, BANDAIDS PLACED.
--- NOTE | 2020-08-03 14:17 | NUR ---
LAYING ON L SIDE RESTING WITH EYES CLOSED, RESP REGULAR AND UNLABORED, NO S/S OF DISTRESS NOTED. SIG OTHER REQUEST RN LET PT REST, INSTRUCTED TO HAVE PT CALL RN VIA CALL LIGHT WHEN SHE AWAKENS, VERBALIZES UNDERSTANDING. BED IN LOW POSITION WTIH SRUP X2. CALL LIGHT AND PHONE PLACED WITHIN PT REACH.
--- NOTE | 2020-08-03 16:14 | NUR ---
PAIN MED GIVEN SCANNED TO EMAR. PT RATES PAIN AT INCISION AT 8/10. LARGE CUP OF ICE WATER ALSO GIVEN AT THIS TIME. NO OTHER NEEDS VOICED. SIDE RAILS UP X 2 WITH CALL LIGHT IN REACH.
[2020-08-03 16:16] VITALS: BP 133/60
[2020-08-03 19:55] VITALS: BP 112/55
--- NOTE | 2020-08-03 19:55 | NUR ---
ROOM CHECK COMPLETE. LYING IN BED AWAKE. STATES PAIN IS 7/10 AND REQUESTS PRN PERCOCET. SHIFT ASSESSMENT COMPLETE PER FLOWSHEET. VSS. PT STATES BLEEDING HAS ALMOST GONE AWAY AND SHE HAS NOT CHANGED A PAD WITHIN THE HOUR. WENT TO CHECK PT FUNDUS AND SHE ASKED TO GO TO BATHROOM SO TOLD HER TO GO TO BATHROOM AND I WOULD GET PAIN MEDICINE AND BRING BACK TO HER. VERBALIZED UNDERSTANDING.
--- NOTE | 2020-08-03 20:11 | NUR ---
PRN PERCOCET AND GAS-X GIVEN PER ORDERS. FUNDUS U2 AND FIRM. PT STATES SHE HAD VERY SMALL AMOUNT OF PALE PINK BLOOD. DENIES NEEDING ANYTHING ELSE @ THIS TIME.
--- NOTE | 2020-08-03 22:00 | NUR ---
ROOM CHECK COMPLETE. PT AWAKE AND SITTING UP IN BED. NO SIGNS OF DISTRESS NOTED. STATES PAIN IS BETTER AND NOW 4/10. MOTRIN GIVEN PER ORDERS. DENIES NEEDING ANYTHING ELSE @ THIS TIME.
--- NOTE | 2020-08-03 22:50 | NUR ---
ROOM CHECK COMPLETE. PT AWAKE AND SITTING UP IN BED. ASKED HOW PAIN WAS AND SHE SAID BETTER AND RATED IT 3/10. ASKED FOR SOME MORE ICE WATER AND AMBIEN. GOT ICE WATER AND GAVE AMBIEN PER ORDERS
--- NOTE | 2020-08-04 00:43 | NUR ---
ROOM CHECK COMPLETE. PT LYING IN BED. HAD CALLED ASKING FOR HELP TURNING LIGHTS OFF SO WENT AND TURNED OFF LIGHTS FOR HER. DENIES NEEDING ANYTHING ELSE @ THIS TIME.
--- NOTE | 2020-08-04 02:41 | NUR ---
ROOM CHECK COMPLETE. PT ASLEEP IN BED. NO SIGNS OF PAIN OR DISTRESS NOTED.
--- NOTE | 2020-08-04 05:48 | NUR ---
ROOM CHECK COMPLETE. PT LYING IN BED ASLEEP. NO SIGNS OF PAIN OR DISTRESS NOTED.
[2020-08-04 06:24] VITALS: BP 125/61
--- NOTE | 2020-08-04 06:25 | NUR ---
ROOM CHECK COMPLETE. PT ASLEEP. WOKE UP. GAVE MOTRIN AND GAS-X PER ORDERS. STATES PAIN IS 5/10. VITALS OBTAINED. VSS. DENIES NEEDING ANYTHING ELSE @ THIS TIME.
[2020-08-04 07:21] LABS: BASOPHILS 0.1 % (0-2); EOSINOPHILS 4.8 % (0-7); HEMATOCRIT 31.8 % (36.0-48.0); HEMOGLOBIN 10.5 g/dL (12-16); LYMPHOCYTES 17.6 % (15-50); MCH 28.1 pg (26.0-34.0); MCHC 33.1 g/dL (31.0-37.0); MCV 84.9 fL (80.0-100.0); MEAN PLATELET VOLUME 8.2 fL (7.4-10.4); MONOCYTES 8.5 % (2-11); PLATELET COUNT 364 10x3/uL (130-400); RBC 3.75 10x6/uL (4.00-5.40)
[2020-08-04 07:48] LABS: WBC 16.8 10x3/uL (4.8-10.8)
[2020-08-04 08:00] VITALS: BP 129/66
--- NOTE | 2020-08-04 08:00 | NUR ---
AM ASSESSMENT COMPLETED CHARTED TO FLOWSHEET. FUNDUS FIRM AT U/U WITH LIGHT BLEEDING TO SINGH PAD. INCISION CLEAN AND DRY. REGULAR DIET TRAY PER DIETARY, SHE DENIES NEEDS AT THIS TIME.
--- NOTE | 2020-08-04 08:20 | NUR ---
SINGH PADS PROVIDED ASKED FOR. WILL CALL WHEN READY FOR DISCHARGE TEACHING TO BE DONE.
[2020-08-04] MEDS ORDERED: PERCOCET 5-3251 TAB PO (08:42)
[2020-08-04] MEDS ORDERED: IBUPROFEN800 MG PO (08:44)
--- NOTE | 2020-08-04 09:30 | NUR ---
PAIN MED GIVEN FOR PAIN THAT SHE RATES AT 6/10. ALSO STATES THAT SIG OTHER IS HERE AND READY FOR D/C TEACHING.
--- NOTE | 2020-08-04 09:40 | NUR ---
VERBAL AND WRITTEN DISCHARGE INSTRUCTIONS GONE OVER. PROVIDED WITH WRITTEN SCRIPT FOR PERCOCET 5/325MG AND MOTRIN 800MG, PT STATES UNDERSTANDING OF WHEN TO TAKE NEXT DOSE. DENIES ANY QUESTIONS OR CONCERNS.
--- NOTE | 2020-08-04 09:45 | NUR ---
TAKEN OUT BY WHEELCHAIR. HOME BY PRIVATE CAR WITH SIG OTHER.
== END 2020-08-04 09:45 | disposition home or self-care (01) | DRG 785 ==
LOC: D.LD 08-02 10:04 → D.SDCHOLD 08-02 12:00 → D.LD 08-04 09:45
PROVIDERS: ADMIT Student in an Organized Health Care Education/Training Program; ATTEND Obstetrics & Gynecology
PROC: 10D00Z1 Extraction of Products of Conception, Low, Open Approach (ICD-10-PCS; principal; 2020-08-02)
PROC: 0UB70ZZ Excision of Bilateral Fallopian Tubes, Open Approach (ICD-10-PCS; 2020-08-02)
DX: O13.4 Gestational [pregnancy-induced] hypertension without significant proteinuria, complicating childbirth (principal); Z3A.36 36 weeks gestation of pregnancy; Z37.0 Single live birth; Z30.2 Encounter for sterilization; O99.214 Obesity complicating childbirth; E66.9 Obesity, unspecified; D72.829 Elevated white blood cell count, unspecified; O99.824 Streptococcus B carrier state complicating childbirth; O60.14X0 Preterm labor third trimester with preterm delivery third trimester, not applicable or unspecified

== ENCOUNTER → 2020-07-13 11:00 | Outpatient (CLI) | payer OTHER ==
[2020-06-20 01:29] VITALS: BMI 33.9
== END | disposition home or self-care (01) ==
LOC: D.LDO 11:00
PROVIDERS: ATTEND Obstetrics & Gynecology
DX: O13.9 Gestational [pregnancy-induced] hypertension without significant proteinuria, unspecified trimester (principal)

== ENCOUNTER 2020-07-16 13:51 | Outpatient (CLI) | payer OTHER ==
[2020-07-16 14:41] LABS: PROTEIN - URINE 14.9 mg/dL (0.0-11.9)
== END 2020-07-16 15:02 | disposition home or self-care (01) ==
LOC: D.LDO 13:51
PROVIDERS: ATTEND Student in an Organized Health Care Education/Training Program
DX: O13.9 Gestational [pregnancy-induced] hypertension without significant proteinuria, unspecified trimester (principal)

== ENCOUNTER 2020-07-23 16:18 | Outpatient (CLI) | payer OTHER | END 2020-07-23 17:58 | disposition home or self-care (01) | LOC: D.LDO 16:18 | PROVIDERS: ATTEND Obstetrics & Gynecology | DX: O24.419 Gestational diabetes mellitus in pregnancy, unspecified control (principal) ==

== ENCOUNTER 2020-07-29 09:42 | Outpatient (CLI) | payer OTHER | END 2020-07-29 11:25 | disposition home or self-care (01) | LOC: D.LDO 09:42 | PROVIDERS: ATTEND Obstetrics & Gynecology | DX: O35.9XX0 Maternal care for (suspected) fetal abnormality and damage, unspecified, not applicable or unspecified (principal) ==

== ENCOUNTER 2020-07-30 14:23 | Outpatient (CLI) | payer OTHER | END 2020-07-30 15:00 | disposition home or self-care (01) | LOC: D.LDO 14:23 | PROVIDERS: ATTEND Obstetrics & Gynecology | DX: O36.0191 Maternal care for anti-D [Rh] antibodies, unspecified trimester, fetus 1 (principal) ==